=== PATIENT | female | born 1995 | race Caucasian/White ===

== ENCOUNTER 2019-11-29 13:17 | Emergency (ER) | payer OTHER ==
[~2019-11-29] VITALS: Ht 152.4 cm; Wt 79.4 kg
[2019-11-29 13:20] VITALS: BP 113/73
--- NOTE | 2019-11-29 13:50 | NUR ---
COVID SWAB DONE AND SENT TO LAB
--- NOTE | 2019-11-29 13:50 | NUR ---
Patient discharged to home in stable condition. Written and verbal after care instructions given. Patient verbalizes understanding of instruction. Pt ambulatory with a steady gait
== END 2019-11-29 14:00 | disposition home or self-care (01) ==
LOC: ER 13:17
DX: Z03.818 Encounter for observation for suspected exposure to other biological agents ruled out (principal); Z33.1 Pregnant state, incidental
CPT/HCPCS: 99283; U0003

== ENCOUNTER 2019-12-29 11:40 | Emergency (ER) | payer OTHER ==
[~2019-12-29] VITALS: Ht 152.4 cm; Wt 79.4 kg
[2019-12-29 11:53] VITALS: BP 106/66
--- NOTE | 2019-12-29 13:18 | NUR ---
Patient discharged to home in stable condition. Written and verbal after care instructions given. Patient verbalizes understanding of instruction.
== END 2019-12-29 13:18 | disposition home or self-care (01) ==
LOC: ER 11:41
DX: R51 Headache (principal)
CPT/HCPCS: 99283; C9803; U0003

== ENCOUNTER 2020-04-02 08:43 | Emergency (ER) | payer OTHER ==
[~2020-04-02] VITALS: Ht 152.4 cm; Wt 86.2 kg
[2020-04-02 08:48] VITALS: BP 107/78
--- NOTE | 2020-04-02 09:26 | NUR ---
Patient discharged to home in stable condition. Written and verbal after care instructions given. Patient verbalizes understanding of instruction.
--- NOTE | 2020-04-02 09:26 | NUR ---
covid 19 swab collected and sent to lab
== END 2020-04-02 09:27 | disposition home or self-care (01) ==
LOC: ER 08:43
DX: Z20.828 Contact with and (suspected) exposure to other viral communicable diseases (principal)
CPT/HCPCS: 99283; C9803; U0003

== ENCOUNTER 2020-05-06 09:53 | Emergency (ER) | payer OTHER ==
[~2020-05-06] VITALS: Ht 152.4 cm; Wt 88.5 kg
[2020-05-06 09:57] VITALS: BP 120/83
--- NOTE | 2020-05-06 10:26 | NUR ---
Patient discharged to home in stable condition. Written and verbal after care instructions given. Patient verbalizes understanding of instruction.
--- NOTE | 2020-05-07 20:53 | NUR ---
LAB CALLED REGARDING NEGATIVE COVID RESULT.
== END 2020-05-06 10:27 | disposition home or self-care (01) ==
LOC: ER 09:53
DX: Z20.828 Contact with and (suspected) exposure to other viral communicable diseases (principal)
CPT/HCPCS: 99283; C9803; U0003